=== PATIENT | female | born 1965 | race Caucasian/White ===

== ENCOUNTER → 2019-09-07 12:21 | Outpatient (BNVA) | payer OTHER, SELFPAY | PROVIDERS: PCP Family Medicine; Visit Provider Nurse Practitioner Family | DX: N39.0 Urinary tract infection, site not specified (principal) | CPT/HCPCS: 81003 ==

== ENCOUNTER → 2020-09-12 09:00 | Outpatient (BNVA) | payer OTHER, SELFPAY | PROVIDERS: PCP Family Medicine; Referring Provider Family Medicine; Visit Provider Orthopaedic Surgery | DX: S42.202A Unspecified fracture of upper end of left humerus, initial encounter for closed fracture (principal); X58.XXXA Exposure to other specified factors, initial encounter | CPT/HCPCS: 73030 ==

== ENCOUNTER → 2020-09-26 14:05 | Outpatient (BNVA) | payer OTHER, SELFPAY | PROVIDERS: PCP Family Medicine; Visit Provider Orthopaedic Surgery | DX: S42.202A Unspecified fracture of upper end of left humerus, initial encounter for closed fracture (principal); X58.XXXA Exposure to other specified factors, initial encounter | CPT/HCPCS: 73030 ==

== ENCOUNTER 2022-06-04 10:34 | Outpatient (CLI) | payer OTHER, SELFPAY ==
--- NOTE | 2022-06-04 | ECG_ITS ---
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 Interpretive Statements NAME OF STUDY: TREADMILL STRESS TEST INDICATION: [Shortness of Breath, ] EXERCISE DATA: The patient was exercised by Keith protocol. Baseline heart rate was 58 beats per minute. Baseline blood pressure was 131/99 millimeters of mercury. Target heart rate was 137 beats per minute. Maximum heart rate achieved was 137, which was 100% of the target heart rate. Maximum blood pressure was 190/88 millimeters of mercury. Total exercise time was 6 mins and 16 seconds. Maximum METs achieved was 10.2. The reason for ending the test was maximal effort achieved. The patient complained of shortness of breath during the stress test, which then resolved at the end of the test. ELECTROCARDIOGRAM: BASELINE: Showed sinus rhythm, normal axis, no significant ST-T changes at the baseline noted. [] EXERCISE: At the peak exercise level, [] No significant ST-T changes suggestive of ischemia noted. [] RECOVERY: During the recovery period, heart rate dropped appropriately. No significant ST-T changes in the recovery suggestive of ischemia noted. [] CONCLUSION: 1. Exercise capacity fair 2. Heart rate response was appropriate. 3. Blood pressure response was appropriate 4. Symptoms not suggestive of ischemia. 5. Stress test is normal and is negative for ischemia Electronically Signed On 06-23-2022 13:16:11 INSPECTOR [employer] by Parker Delarosa M.D. [id number]
--- NOTE | 2022-06-04 | USCV_ITS ---
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 Technologist: Dominic Hermosillo Exam Location: [facility] [place] Indication: dyspnea BP: 128 / 80 HR: 56 Rhythm: Sinus Technical Quality: Adequate MEASUREMENTS (Male / Female) Normal Values 2D ECHO LV Diastolic Diameter PLAX 4.0 cm 4.2 - 5.9 / 3.9 - 5.3 cm LV Systolic Diameter PLAX 2.3 cm IVS Diastolic Thickness 0.7 cm 0.6 - 1.0 / 0.6 - 0.9 cm IVS Systolic Thickness 0.9 cm LVPW Diastolic Thickness 1.2 cm 0.6 - 1.0 / 0.6 - 0.9 cm LVPW Systolic Thickness 1.1 cm LVOT Diameter 2.0 cm LV Ejection Fraction 2D Teich 73.7 % LV Ejection Fraction MOD 2C 77.8 % LV Ejection Fraction 2C AL 76.8 % LA Diameter 3.1 cm LA Width 3.5 cm LA Height 3.9 cm RA Width 2.8 cm RA Height 4.4 cm Aorta at Sinotubular Diameter 2.4 cm IVC Diameter 1.9 cm M-MODE Aortic Annulus Diameter 2.7 cm LA Ao Ratio MM 1.2 MV E Point Septal Separation 0.5 cm DOPPLER AV Peak Velocity 108.7 cm/s LVOT Peak Velocity 101.0 cm/s AV Area Cont Eq vti 2.8 cm squared AV Area Cont Eq pk 3.0 cm squared MV Peak Velocity 95.0 cm/s MV Area PHT 4.4 cm squared Mitral E to A Ratio 1.2 MV E' Velocity 45.0 cm/s Mitral E to MV E' Ratio 7.5 Mitral E to LV E' Lateral Ratio 6.7 Mitral E to LV E' Septal Ratio 8.5 TR Peak Velocity 253.9 cm/s TR Peak Gradient 25.8 mmHg TR Mean Velocity 198.1 cm/s TR Mean Gradient 17.0 mmHg TR Velocity Time Integral 69.4 cm Right Atrial Pressure 3.0 mmHg Pulmonary Artery Systolic Pressu 28.8 mmHg PV Peak Velocity 80.7 cm/s RV Acceleration Time 0.1 s RV Ejection Time 0.3 s RV AcT/ET 0.3 FINDINGS Left Ventricle Normal left ventricular size, systolic function and wall thickness, with no regional wall motion abnormalities. Normal left ventricular wall thickness. Normal diastolic filling pattern. Left ventricular ejection fraction is estimated at 60 %. Right Ventricle The right ventricle is normal in size and function. Normal right ventricular systolic pressure. Right Atrium The right atrium is normal in size. Left Atrium The left atrium is normal in size. Mitral Valve Structurally normal mitral valve without significant stenosis or prolapse. There is no mitral regurgitation. Aortic Valve Structurally normal aortic valve without significant sclerosis or stenosis. There is no aortic regurgitation. Tricuspid Valve Structurally normal tricuspid valve without significant stenosis or regurgitation. Pulmonary artery systolic pressure is normal. Pulmonic Valve Structurally normal pulmonic valve without significant stenosis. There is no pulmonic regurgitation. Pericardium Normal pericardium without effusion. Aorta Normal ascending aorta dimension. IVC The inferior vena cava appears normal. CONCLUSIONS Normal transthoracic echocardiogram. There are no prior echocardiogram studies to compare. Dr. Obi Carrasquillo MD (Electronically Signed) Final Date: 04 June 2022 15:53 S
[2022-06-04 12:40] VITALS: BMI 30.4
[2022-06-04 13:00] VITALS: BP 174/91; PULSE 81
== END 2022-06-04 10:35 | disposition home or self-care (01) ==
LOC: RAD 10:35
PROVIDERS: PCP Nurse Practitioner Family; Visit Provider Nurse Practitioner Family
DX: R07.9 Chest pain, unspecified (principal); R06.02 Shortness of breath; R06.00 Dyspnea, unspecified
CPT/HCPCS: 93017; 93306

== ENCOUNTER 2023-05-10 10:33 | Emergency (ER) | payer OTHER, SELFPAY ==
[2023-05-10 10:42] VITALS: BP 158/84; PULSE 82; RESP 16; TEMP 37.1; O2SAT 98; BMI 33.4
--- NOTE | 2023-05-10 10:56 | CTR_ITS ---
PROCEDURE INFORMATION: Exam: CT Head Without Contrast Exam date and time: 05/10/2023 11:05 AM Age: 57 years old Clinical indication: Pain; Headache; Additional info: Headache with change in vision TECHNIQUE: Imaging protocol: Computed tomography of the head without contrast. Radiation optimization: All CT scans at this facility use at least one of these dose optimization techniques: automated exposure control; mA and/or kV adjustment per patient size (includes targeted exams where dose is matched to clinical indication); or iterative reconstruction. REPORTING DATA: Count of CT and Cardiac NM exams in prior 12 months: This patient has received 0 known CTs and 0 known cardiac nuclear medicine studies in the 12 months prior to the current study. COMPARISON: No relevant prior studies available. RADIATION DOSE METRICS: Total DLP (mGy-cm): 1017.5 FINDINGS: Brain: Normal. No hemorrhage. Unremarkable white matter. No mass effect. Cerebral ventricles: No ventriculomegaly. Paranasal sinuses: Visualized sinuses are unremarkable. No fluid levels. Mastoid air cells: Visualized mastoid air cells are well aerated. Bones/joints: Unremarkable. No acute fracture. Soft tissues: Unremarkable. CT/CT head wo con* [id number] IMPRESSION: No acute intracranial abnormality.
--- NOTE | 2023-05-10 11:56 | ED_ITS ---
HPI - Eye Problem General: Chief complaint: Eye Problems Stated complaint: hurt right eye, redness, Head pain Time Seen by Provider: 05/10/23 10:55 History of Present Illness: 57-year-old female presents emergency room with vague complaint of some redness around to wipe her over I on the right side upon waking up this morning. Patient further reveals that she has a headache for the past 3 days and described the headache as throbbing sensation with severity of 3 out of 10. Headache is not worse headache of her life. [place] any nausea, vomiting, numbness or tingling. No blurry vision, pain, painful vision, drainage, discharge, fever or chills. Patient reveals that she does wear glasses for long distance but has wearing contact lenses. No foreign body sensation. No direct trauma or recent fall. Review of Systems General: Reports: 10 or more systems reviewed and unremarkable except in HPI and below Eyes: Reports: eye redness; Denies: change in vision, blurry vision, blind spots, photophobia, eye discomfort, yellow eyes, floaters or seeing flashes ENMT: Denies: throat pain, uvular edema, hoarseness, bleeding gums or dental pain PFS ED PFSH: Social History Smoking and tobacco/nicotine status: never used tobacco/nicotine Substance/Drug Use: never Physical Exam Const: COMMON NORMALS: no acute distress, average body habitus, patient oriented x3, no limitations, healthy appearing, alert and well nourished HENMT: COMMON NORMALS: normocephalic, atraumatic, hearing grossly normal bilaterally, external ears normal, EAC's normal, TM's normal bilaterally, Normal external nose present, Normal nasal mucous membranes and turbinates present, moist oral mucous membranes, oropharynx normal, dentition normal and gingiva normal HEAD & SCALP: normocephalic and atraumatic NOSE: Normal external nose present and Normal nasal mucous membranes and turbinates present EXTERNAL EAR: Yes external ears normal EXTERNAL AUDITORY CANAL: EAC's normal TYMPANIC MEMBRANE: TM's normal bilaterally THROAT: no uvular edema Eye: COMMON NORMALS: Equal, round and reactive pupils present VISUAL ACUITY: Yes acuity normal (see nurse note ) VISUAL NOVA: No peripheral vision loss, No central vision loss, No left visual field cut, No right visual field cut, No bitemporal visual field cut and No visual field cut by quadrant ALIGNMENT: Yes alignment normal PERIORBITAL: periorbital findings normal CONJUNCTIVA: Yes conjunctival abnormal (hemorrahge ) positive right CORNEA: Yes corneas normal PUPIL: Yes Equal, round and reactive pupils present EOM: Yes EOM abnormal Neck/C-Spine: COMMON NORMALS: full ROM, no lymphadenopathy, supple, no meningeal signs, no JVD, Thyroid normal and No carotid bruits THYROID: Thyroid normal Lymph: LYMPHATIC: no lymphadenopathy noted Chest: COMMONS NORMALS: normal inspection of the chest, normal palpation of entire chest wall, normal inspection of the breasts and normal palpation of the breasts Breast/axilla inspection: Yes normal inspection of the breasts BREAST/AXILLA PALPATION: Yes normal palpation of the breasts Cardio: COMMON NORMALS: no JVD Neuro: COMMON NORMALS: patient oriented x3 SENSORIUM/ORIENTATION: Yes alert MENINGEAL SIGNS: Yes no meningeal signs CRANIAL NERVES: Yes CN normal except as noted SPEECH: speech normal Skin: COMMON NORMALS: no rashes or lesions noted, no wounds, turgor normal, no jaundice, no petechiae and no mottling GENERAL SKIN EXAM: no rashes or lesions noted and turgor normal Course Vital Signs: Vital signs: Vital Signs Temperature 98.7 F 05/10/23 10:42 Pulse Rate 82 05/10/23 10:42 Respiratory Rate 16 05/10/23 10:42 Blood Pressure 158/84 05/10/23 10:42 Pulse Oximetry 98 05/10/23 10:42 Oxygen Delivery Me thod Room Air 05/10/23 10:42 MDM - Eye Problem Medical Decision Making Patient made comfortable emergency room. Patient had visual acuity done. CT scan was done which was negative according to radiologist. I discussed the CT finding with the patient. Patient was found to have mild elevated blood pressure while in the ER. Discussed the need to follow-up with PCP and ophthalmology on Friday for further evaluation and treatment. Patient main stable prior to discharge. Differential Diagnosis Likely corneal abrasion, conjunctivitis, acute iritis, hyphema, periorbital cellulitis, subconjunctival hemorrhage, glaucoma, corneal ulcer and ruptured globe Lab Data Radiology Impressions Head CT 05/10/23 10:56 IMPRESSION: No acute intracranial abnormality. XR interpretation done by ED provider, pending radiology final review Discharge Plan Discharge Patient Disposition: Home Clinical Impression: Subconjunctival hemorrhage, Headache Condition: Stable Prescriptions: No Action citalopram [Celexa] 20 mg tablet 20 mg PO DAILY venlafaxine 75 mg tablet 75 mg PO DAILY cyclobenzaprine 10 mg tablet 10 mg PO TID PRN (Reason: muscle spasm) Qty: 30 0RF oxycodone-acetaminophen [Percocet] 5-325 mg tablet 1 tab PO Q4H PRN (Reason: pain) 7 Days Qty: 40 0RF oxycodone 5 mg capsule 5 mg PO Q4H PRN (Reason: pain) 7 Days Qty: 40 0RF Discharge Orders: Discharge ED (Routine); Ordered 05/10/23 Ordered By: Divine Saunders Referrals: Evans Mishra [Physician] - 1-3 days Leonard Cueto [Primary Care Provider] - Discharge Diet: Advance as tolerated Discharge Activity: Resume usual activity Patient Instructions: Subconjunctival Hemorrhage, Opioid Safety, Pain Management Coding Level of Care Code ED 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
== END 2023-05-10 12:18 | disposition home or self-care (01) ==
PROVIDERS: Emergency Provider Family Medicine; PCP Nurse Practitioner Family
DX: R51.9 Headache, unspecified (principal); H11.31 Conjunctival hemorrhage, right eye
CPT/HCPCS: 70450; 99284

== ENCOUNTER → 2023-06-04 10:50 | Outpatient (BNVA) | payer OTHER, SELFPAY | PROVIDERS: PCP Nurse Practitioner Family; Visit Provider Anesthesiology Pain Medicine | DX: M54.16 Radiculopathy, lumbar region (principal) | CPT/HCPCS: 72110 ==